=== PATIENT | female | born 1995 | race Caucasian/White ===

== ENCOUNTER 2022-08-25 14:24 | Emergency (ER) | payer OTHER ==
[~2022-08-25] VITALS: Ht 160 cm; Wt 60.0 kg
[2022-08-25 16:25] LABS: BASOPHILS % 0.4 % (0.0-2.0); HEMATOCRIT. 35.4 % (36.0-48.0); HEMOGLOBIN. 11.5 g/dL (12.0-16.0); NEUTROPHILS % 73.9 % (40.0-76.0)
[2022-08-25 16:39] LABS: EOSINOPHILS % 0.7 % (0.0-5.0); LYMPHOCYTES % 19.8 % (20.0-50.0); MEAN CORPUSCULAR HEMOGLOBIN 26.4 pg (28.0-32.0); MEAN CORPUSCULAR VOLUME 81.2 fL (81.0-99.0); MEAN PLATELET VOLUME 9.4 fl (7.4-10.4); MONOCYTES % 5.2 % (2.0-8.0); PLATELET 279 x1000/uL (130-400); RED BLOOD CELL COUNT 4.35 mill/uL (4.2-5.4); RED CELL DISTRIBUTION WIDTH 15.7 % (11.6-14.6)
[2022-08-25 16:48] LABS: CHLORIDE 109 mEq/L (98-107)
[2022-08-25 18:18] VITALS: BP 136/81
== END 2022-08-25 21:37 | disposition left against medical advice (07) ==
LOC: ER 14:24
DX: Z53.21 Procedure and treatment not carried out due to patient leaving prior to being seen by health care provider (principal)
CPT/HCPCS: 36415; 71045; 80053; 85025; 99281